=== PATIENT | female | born 1960 | race Caucasian/White ===

== ENCOUNTER 2017-03-09 19:45 | Emergency (ER) | payer BC ==
[2017-03-09 20:03] VITALS: BP 174/84
[2017-03-09] MEDS ORDERED: Lidocaine 1% 30 ML SDV INJECT ONE (20:04)
[2017-03-09] MEDS ORDERED: Bacitracin Oint 1 GM U/D Packet TOP ONE (20:05)
--- NOTE | 2017-03-09 20:31 | EDM.PDOC ---
ED HPI GENERAL MEDICAL PROBLEM - General Chief Complaint: Laceration Stated Complaint: FISH HOOK IN FINGER Time Seen by Provider: 03/09/17 20:00 Source of Information: Reports: Patient History Limitations: Reports: No Limitations - History of Present Illness INITIAL COMMENTS - FREE TEXT/NARRATIVE: fish hook to left middle finger imbedded and other lio of treble hook punctured left thumb. Hook cut prior to arrival. Tetnus current. Onset: today Duration: Minutes: Location: Reports: upper extremity, left Worsens with: Reports: Movement Associated Symptoms: Reports: no other symptoms Left Hand Pain Score (Numeric/FACES): 2 - Related Data Allergies Allergy/AdvReac Type Severity Reaction Status Date / Time Influenza Virus Vaccines Allergy Other Verified 03/09/17 19:51 Home Meds: Home Meds Multivitamins 1 tab PO DAILY 03/02/15 [History] Cholecalciferol (Vitamin D3) [Vitamin D3] 3,000 unit PO DAILY 12/14/16 [History] Past Medical History HEENT History: Reports: None Cardiovascular History: Reports: Hypertension Respiratory History: Reports: None Gastrointestinal History: Reports: GERD Genitourinary History: Reports: Other (see below) Other Genitourinary History: MENOMETRORRHAGIA Musculoskeletal History: Reports: Other (see below) Other Musculoskeletal History: CARPAL TUNNEL SYNDROME Neurological History: Reports: Other (see below) Other Neuro History: NICOTINE DEPENDENCE Psychiatric History: Reports: None Endocrine/Metabolic History: Reports: None Hematologic History: Reports: None Immunologic History: Reports: None - Past Surgical History HEENT Surgical History: Reports: None Female Surgical History: Reports: Dilitation & evacuation, Tubal ligation, Other (see below) Other Female Surgeries/Procedures: CERVIX LESION DESTRUCTION. CERVICAL POLYP REMOVAL Neurological Surgical History: Reports: Other (see below) Other Neurological Surgeries/Procedures: EMG - 2 EXTREMITIES Musculoskeletal Surgical History: Reports: Other (see below) Other Musculoskeletal Surgeries/Procedures:: bunionectomy Social & Family History - Family History Family Medical History: Noncontributory - Tobacco Use Smoking Status *Q: Current Every Day Smoker Years of Tobacco use: 30 Packs/Tins Daily: 0.5 Second Hand Smoke Exposure: No - Caffeine Use Caffeine Use: Reports: Coffee, Soda - Alcohol Use Days Per Week of Alcohol Use: 0 - Recreational Drug Use Recreational Drug Use: No ED ROS GENERAL - Review of Systems Review Of Systems: ROS reveals no pertinent complaints other than HPI. ED EXAM, SKIN/RASH Exam: See Below Exam Limited By: No Limitations General Appearance: Alert, Anxious, Mild Distress Eye Exam: Bilateral Eye: PERRL Ears: Normal External Exam Throat/Mouth: Normal Voice, No Airway Compromise Neck: Full Range of Motion Respiratory/Chest: No Respiratory Distress, Lungs Clear Cardiovascular: Normal Peripheral Pulses, Regular Rate, Rhythm Neurological: Alert, Oriented, Normal Cognition Skin: Warm, Dry, Wound/Incision (left thumb superficial v laceration 2dym2se no active bleeding, no selling, full ROM of thumb. Pad left 3rd finger with partial hook imbedded) Associated features: Tenderness ED SKIN PROCEDURES - Foreign Body Removal Foreign Body Other Location Comment:: left pad thumb fish hook Anesthesia Type: Local (1% lidocaine 1cc) Complications:: No Comments:: area cleansed with betadine, local anesthesia to area around fish hook. parb easily pushed through and removed. cleansed, antibiotic ointment appleid, dressing per nursing. Patient tolerated well. Course - Vital Signs Last Recorded V/S: Last Vital Signs Temp 98.4 F 03/09/17 19:55 Pulse 103 H 03/09/17 19:55 Resp 16 03/09/17 19:55 BP 174/84 H 03/09/17 20:02 Pulse Ox 100 03/09/17 19:55 - Orders/Labs/Meds Meds: Medications Discontinued Medications Generic Name Dose Route Start Last Admin Trade Name Rosibel PRN Reason Stop Dose Admin Bacitracin 1 dose 03/09/17 20:05 03/09/17 20:23 Bacitracin Oint 1 Gm TOP 03/09/17 20:06 1 dose ONETIME ONE Administration Lidocaine HCl 30 ml 03/09/17 20:04 03/09/17 20:21 Xylocaine-Mpf 1% INJECT 03/09/17 20:05 30 ml ONETIME ONE Administration Departure - Departure Time of Disposition: 20:30 Disposition: Home, Self-Care 01 Condition: good Clinical Impression: Removal of foreign body Fish hook injury of finger of left hand Qualifiers: Encounter type: initial encounter Qualified Code(s): S69.92XA - Unspecified injury of left wrist, hand and finger(s), initial encounter - Discharge Information Instructions: Puncture Wound, [id number] Forms: ED Department Discharge Additional Instructions: monitor for infection, if redness selling follow up in clinic warm soak 3 times daily with antibacterial soap cover with bandaide and antibiotic ointment
== END 2017-03-09 20:39 | disposition home or self-care (01) ==
LOC: DL.ED 19:45
DX: S61.022A Laceration with foreign body of left thumb without damage to nail, initial encounter (principal); S60.453A Superficial foreign body of left middle finger, initial encounter; I10 Essential (primary) hypertension; K21.9 Gastro-esophageal reflux disease without esophagitis; F17.210 Nicotine dependence, cigarettes, uncomplicated; Z88.7 Allergy status to serum and vaccine; Z79.899 Other long term (current) drug therapy; Z98.51 Tubal ligation status; W26.8XXA Contact with other sharp object(s), not elsewhere classified, initial encounter
CPT/HCPCS: 99283

== ENCOUNTER 2017-09-28 07:19 | Day surgery (SDC) | payer BC ==
[2017-09-28] MEDS ORDERED: Propofol 1,000 MG/100 ML SDV IV ONE (07:20)
[2017-09-28] MEDS ORDERED: fentaNYL 100 MCG/2 ML SDV IV ONE (07:20)
[2017-09-28] MEDS ORDERED: Bupivacaine 0.5% 10 ML SDV INJECT ONE ×5 (07:20→10:44)
[2017-09-28] MEDS ORDERED: Midazolam 1 MG/ML 2 ML SDV IV ONE (07:20)
[2017-09-28] MEDS ORDERED: Lidocaine 1% 30 ML SDV INJECT ONE ×5 (07:20→10:44)
[2017-09-28] MEDS ORDERED: Dexamethasone 4 MG/ML SDV IV ONE (07:20)
[2017-09-28] MEDS ORDERED: Ondansetron 4 MG/2 ML SDV IV ONE (07:20)
[2017-09-28] MEDS ORDERED: Ketorolac 30 MG/ML SDV IVPUSH ONE (07:20)
[2017-09-28] MEDS ORDERED: Bupivacaine 0.5% 10 ML SDV ONE (07:35)
[2017-09-28] MEDS ORDERED: Lidocaine 1% 30 ML SDV ONE (07:35)
[2017-09-28] MEDS ORDERED: Lactated Ringers 1,000 ML IV SCH (07:45)
[2017-09-28] MEDS ORDERED: ceFAZolin 1 GM in Premix Bag 1 BAG IV ONE (08:15)
[2017-09-28] MEDS ORDERED: Acetaminophen/oxyCODONE 325-5 MG Tab PO PRN (10:55)
--- NOTE | 2017-09-28 10:59 | PCM.OPNOTE ---
- General Post-Op/Procedure Note Date of Surgery/Procedure: 09/28/17 Operative Procedure(s): left foot 1st metatarsal cuneiform arthrodesis bunionectomy Pre Op Diagnosis: left foot painful bunion Post-Op Diagnosis: sid Anesthesia Technique: Local, MAC Primary Surgeon: Janina Fuentes Anesthesia Provider: Brent Ritter EBL in mLs: 10 Complications: none Condition: Good Free Text/Narrative:: Intake & Output 09/27/17 09/28/17 09/28/17 22:59 06:59 14:59 Intake Total 50 Balance 50 Pt tolerated procedure well and was transported to pacu with vss and vascular status intact to left foot. TT 103 mins. Well padded L&U splint applied with foot in neutral position. [place] 3.0 cannulated screws placed.
[2017-09-28 12:21] VITALS: BP 150/79
--- NOTE | 2017-09-29 08:48 | OR ---
DATE: 09/28/2017 PREOPERATIVE DIAGNOSIS: Left foot painful bunion deformity. POSTOPERATIVE DIAGNOSIS: Left foot painful bunion deformity. PROCEDURE PERFORMED: Left foot 1st metatarsal cuneiform arthrodesis/bunionectomy. ANESTHESIA: Local MAC with preoperative local block of 10 mL 1:1 mixture of 1% lidocaine plain and 0.5% Marcaine plain. TOURNIQUET TIME: 103 minutes of pneumatic ankle tourniquet. ESTIMATED BLOOD LOSS: Minimal. SPECIMEN: None. COMPLICATIONS: None. INDICATIONS: Dai is a 57-year-old female who is status post right foot bunionectomy [place] procedure performed earlier this year. She is doing very well with that foot with no pain and her right foot is completely healed. She would like to set up surgery for her left foot bunion, would like the same type of procedure for that foot as her right foot turned out very well. She does have a very large bunion deformity to the left foot also with pain to that foot in that area. She has tried wider shoes, toe spacers, activity modifications with no relief. She is on her feet all day and works at [employer]. X-rays of the left foot revealed medially deviated 1st metatarsal with IM angle of 19 degrees, hallux abductus angle of 23 degrees. The patient voiced good understanding of proposed procedure and possible complications, elects to have surgery at this time. DESCRIPTION OF PROCEDURE: The patient was taken to the operating room, lying in the supine position. After adequate anesthesia induction as described above, the left foot was prepped and draped in the usual sterile fashion. A pneumatic ankle tourniquet was inflated to 225 mmHg. Attention was then directed to the left foot 1st metatarsal where an approximately 7 cm curvilinear incision was made centered over the 1st metatarsal. The skin incision was deepened to the periosteum with sharp and blunt dissection with care to retract all neurovascular bundles, the nerve did cross over the incision site right over her 1st metatarsal cuneiform joint. I immobilized that and retracted it proximally. An inverted-L capsulotomy was performed. The capsule was reflected to expose the 1st metatarsal and the 1st metatarsal cuneiform joint. 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 All articular cartilage was healthy in appearance at the 1st metatarsal phalangeal joint with no defects. The cartilage at the 1st metatarsal cuneiform joint was removed via curettage. A 0.062 inch K-wire was used to fenestrate the area to the subchondral bone and the osteotome was also used to break up the subchondral bone. A bone rasp was used to rasp down that lateral section of the base of the 1st metatarsal and medial cuneiform. The bunion was reduced, and the osteotomy site was then approximated to have good [id number] contact with good reduction of the 1st intermetatarsal angle. Two partially-threaded crossing 3.0 mm Cindi cannulated screws were then inserted across the fusion site. The osteotomy site was noted to be stable with varus, valgus, and axial forces applied. Fluoroscopy was used to verify proper reduction of the 1st intermetatarsal angle as well as proper positioning of the screw fixation in good compression at the joint site. This was also visualized. The area was then flushed with copious amounts of sterile saline. A medial capsulorrhaphy was performed. At this point, her hallux was noted to be very tight at the 1st metatarsophalangeal joint laterally, so I did do a lateral release at this time. Blunt dissection was performed to the 1st interspace and a lateral release was performed. The hallux was noted to be in rectus alignment after that release. The medial capsulorrhaphy was performed. Medial capsular closure was completed with 2-0 Vicryl. Dorsal capsular closure and subcutaneous closure were completed with 3-0 Vicryl, and skin closure was completed with 4-0 nylon. The area was dressed with Xeroform to the incision sites, fluffs, Webril, and a well- padded L and U splint with the foot in neutral position. The hallux was noted to be in rectus alignment. The patient tolerated the procedure and anesthesia well and left the operating room with vital signs stable in good condition with vascular status intact to the left foot as noted by immediate hyperemia to all digits upon deflation of the ankle tourniquet. Tourniquet time was 103 minutes. The patient was discharged home when she met hospital discharge requirements. [facility] /[id number]
== END 2017-09-28 12:00 | disposition home or self-care (01) ==
LOC: DL.SDS 07:19
PROVIDERS: ATTEND Podiatrist
DX: M21.612 Bunion of left foot (principal); I10 Essential (primary) hypertension; K21.9 Gastro-esophageal reflux disease without esophagitis; F41.9 Anxiety disorder, unspecified; Z98.51 Tubal ligation status; Z98.890 Other specified postprocedural states; Z79.899 Other long term (current) drug therapy; Z88.8 Allergy status to other drugs, medicaments and biological substances; F17.210 Nicotine dependence, cigarettes, uncomplicated
CPT/HCPCS: 28750; C1713; J0690; J1100; J1885; J2250; J2405; J2704; J3010; J7120

== ENCOUNTER 2018-04-05 18:01 | Emergency (ER) | payer BC ==
[2018-04-05 18:49] VITALS: BP 160/80
[2018-04-05] MEDS ORDERED: Ketorolac 30 MG/ML SDV IVPUSH ONE (19:28)
[2018-04-05] MEDS ORDERED: Ondansetron 4 MG/2 ML SDV IV ONE (19:28)
--- NOTE | 2018-04-05 19:33 | EDM.PDOC ---
ED HPI GENERAL MEDICAL PROBLEM - General Chief Complaint: Genitourinary Problem Stated Complaint: [id number] kidney STONE OR BLADDER INFECTION Time Seen by Provider: 04/05/18 19:31 Source of Information: Reports: Patient History Limitations: Reports: No Limitations - History of Present Illness INITIAL COMMENTS - FREE TEXT/NARRATIVE: onset of problem on Monday with s/s UTI and low abd' pain on-off. then today developed increase pain with nausea, so came here. Right Flank Pain Score (Numeric/FACES): 6 - Related Data Allergies Allergy/AdvReac Type Severity Reaction Status Date / Time Influenza Virus Vaccines Allergy Other Verified 09/27/17 09:44 Home Meds: Home Meds Multivitamins 1 tab PO DAILY 03/02/15 [History] Cholecalciferol (Vitamin D3) [Vitamin D3] 3,000 unit PO DAILY 12/14/16 [History] Acetaminophen 1 tab PO Q6H PRN 09/27/17 [History] Ibuprofen 1 tab PO Q6H PRN 09/27/17 [History] PARoxetine HCl [Paroxetine HCl] 1 tab PO DAILY 09/27/17 [History] Past Medical History HEENT History: Reports: None Cardiovascular History: Reports: Hypertension, Other (See Below) Other Cardiovascular History: HX OF HTN WITH USE OF BIRTHCONTROL PILLS Respiratory History: Reports: None Gastrointestinal History: Reports: GERD Genitourinary History: Reports: UTI, Recurrent, Other (See Below) Other Genitourinary History: MENOMETRORRHAGIA [employer] WORKER History: Reports: Spontaneous Musculoskeletal History: Reports: Arthritis, Other (See Below) Other Musculoskeletal History: CARPAL TUNNEL SYNDROME Neurological History: Reports: Other (See Below) Other Neuro History: NICOTINE DEPENDENCE Psychiatric History: Reports: Anxiety, Panic Attack Endocrine/Metabolic History: Reports: None Hematologic History: Reports: None Immunologic History: Reports: None Oncologic (Cancer) History: Reports: None Dermatologic History: Reports: None - Infectious Disease History Infectious Disease History: Reports: None - Past Surgical History HEENT Surgical History: Reports: None Cardiovascular Surgical History: Reports: None GI Surgical History: Reports: None Female Surgical History: Reports: Dilitation & Evacuation, Tubal Ligation, Other (See Below) Other Female Surgeries/Procedures: CERVIX LESION DESTRUCTION. CERVICAL POLYP REMOVAL Neurological Surgical History: Reports: Other (See Below) Other Neurological Surgeries/Procedures: EMG - 2 EXTREMITIES Musculoskeletal Surgical History: Reports: Carpal Tunnel, Other (See Below) Other Musculoskeletal Surgeries/Procedures:: bunionectomy Social & Family History - Family History Family Medical History: Noncontributory Cardiac: Reports: Other (See Below) Other Cardiac Family History: HEART DISEASE UNSPECIFIED Neurological: Reports: Other (See Below) Other Neurological Family History: DYSTONIA Endocrine/Metabolic: Reports: Other (See Below) Other Endocrine/Metabolic Family History: THYRIOD DISEASE UNSPECIFIED Oncologic: Reports: Lung - Tobacco Use Smoking Status *Q: Current Every Day Smoker Years of Tobacco use: 25 Packs/Tins Daily: 1 - Caffeine Use Caffeine Use: Reports: Coffee, Soda Caffeine Use Comment: coffee 48oz. soda 12oz - Recreational Drug Use Recreational Drug Use: No ED ROS GENERAL - Review of Systems Review Of Systems: ROS reveals no pertinent complaints other than HPI. ED EXAM, RENAL/ - Physical Exam Exam: See Below Exam Limited By: No Limitations General Appearance: Alert, WD/WN, Mild Distress, Other (discomfort) Ears: Hearing Grossly Normal Throat/Mouth: Normal Voice, No Airway Compromise Head: Atraumatic Neck: Non-Tender, Full Range of Motion Respiratory/Chest: No Respiratory Distress Cardiovascular: Regular Rate, Rhythm GI/Abdominal: Guarding, Tender, Other (RLQ>). No: Distended, Rigid, Rebound Back Exam: CVA Tenderness (R) Neurological: Alert, Oriented, Normal Cognition, Normal Gait, No Motor/Sensory Deficits Psychiatric: Anxious Skin Exam: Warm, Dry, Normal Color Lymphatic: No Adenopathy Course - Vital Signs Last Recorded V/S: Last Vital Signs Temp 37.2 C 04/05/18 18:37 Pulse 84 04/05/18 18:37 Resp 20 04/05/18 18:37 BP 160/80 H 04/05/18 18:37 Pulse Ox 99 04/05/18 18:37 - Orders/Labs/Meds Labs: Laboratory Tests 04/05/18 04/05/18 04/05/18 Range/Units 18:50 19:15 19:15 WBC 12.9 H (5.0-10.0) 10^3/uL RBC 4.61 (4.2-5.4) 10^6/uL Hgb 14.3 (12.0-16.0) g/dL Hct 41.6 (37.0-47.0) % MCV 90.2 (80-100) fL MCH 31.0 (27.0-34.0) pg MCHC 34.4 (33.0-35.0) g/dL Plt Count 319 (150-450) 10^3/uL Neut % (Auto) 73.9 (42.2-75.2) % Lymph % (Auto) 16.3 L (20.5-50.1) % Mccreary % (Auto) 7.0 (2-8) % Eos % (Auto) 2.5 (1.0-3.0) % Baso % (Auto) 0.3 (0.0-1.0) % Sodium 133 L (135-145) mmol/L Potassium 4.0 (3.6-5.0) mmol/L Chloride 96 L (101-111) mmol/L Carbon Dioxide 27.0 (21.0-31.0) mmol/L Anion Gap 14.0 BUN 15 (7-18) mg/dL Creatinine 0.7 (0.6-1.3) mg/dL Est Cr Clr Drug Dosing 70.68 mL/min Estimated GFR (MDRD) > 60 BUN/Creatinine Ratio 21.42 Glucose 99 (74-105) mg/dL Calcium 9.8 (8.4-10.2) mg/dl Total Bilirubin 0.6 (0.2-1.0) mg/dL AST 27 (10-42) IU/L ALT 28 (10-60) IU/L Alkaline Phosphatase 74 (42-121) IU/L Total Protein 8.1 (6.7-8.2) g/dl Albumin 4.8 (3.2-5.5) g/dl Globulin 3.3 Albumin/Globulin Ratio 1.45 Urine Color Yellow (YELLOW) Urine Appearance Turbid (CLEAR) Urine pH 6.0 (5.0-9.0) Ur Specific [place] 1.020 (1.005-1.030) Urine Protein >=300 H (NEGATIVE) Urine Glucose (UA) Negative (NEGATIVE) Urine Ketones Negative (NEGATIVE) Urine Occult Blood Large H (NEGATIVE) Urine Nitrite Positive H (NEGATIVE) Urine Bilirubin Negative (NEGATIVE) Urine Urobilinogen 0.2 (0.2-1.0) mg/dL Ur Leukocyte Esterase Large H (NEGATIVE) Urine RBC >100 H /HPF Urine WBC Packed H (0-5/HPF) /HPF Ur Epithelial Cells Many H /HPF Amorphous Sediment Many H (0/HPF) /HPF Urine Bacteria Many H (0-FEW/HPF) /HPF Urine Mucus Many H /LPF Meds: Medications Discontinued Medications Generic Name Dose Route Start Last Admin Trade Name Freq PRN Reason Stop Dose Admin Ceftriaxone Sodium 1 gm 04/05/18 21:34 04/05/18 21:41 Rocephin IVPUSH 04/05/18 21:35 1 gm ONETIME ONE Administration Iopamidol 50 ml 04/05/18 20:12 04/05/18 20:20 Isovue-300 (61%) IVPUSH 04/05/18 20:13 50 ml ONETIME ONE Administration Ketorolac Tromethamine 15 mg 04/05/18 19:28 04/05/18 19:38 Toradol IVPUSH 04/05/18 19:29 15 mg ONETIME ONE Administration Ondansetron HCl 4 mg 04/05/18 19:28 04/05/18 19:37 Zofran IV 04/05/18 19:29 4 mg ONETIME ONE Administration - Re-Assessments/Exams Free Text/Narrative Re-Assessment/Exam: 04/05/18 21:39 results discussed with pt. Departure - Departure Time of Disposition: 21:45 Disposition: Home, Self-Care 01 Condition: Good Clinical Impression: UTI, Urinary tract infectious disease, Kidney stone - Discharge Information Instructions: Renal Colic, [id number] Referrals: Ady Blandon MD [Primary Care Provider] - Forms: ED Department Discharge Additional Instructions: 1) rest 2) drink lots of liquids 3) follow up with family doctor next week rx given; bactrim DS bid x 20 pyridium 100mg tid prn x 12
[2018-04-05 19:46] LABS: CHLORIDE,CL 96 mmol/L (101-111); SODIUM,NA 133 mmol/L (135-145)
[2018-04-05] MEDS ORDERED: Iopamidol 612 MG/ML 50 ML SDV IVPUSH ONE (20:12)
[2018-04-05] MEDS ORDERED: cefTRIAXone 1 GM Vial IVPUSH ONE (21:34)
== END 2018-04-05 21:49 | disposition home or self-care (01) ==
LOC: DL.ED 18:01
DX: N20.0 Calculus of kidney (principal); I10 Essential (primary) hypertension; F17.210 Nicotine dependence, cigarettes, uncomplicated; Z88.7 Allergy status to serum and vaccine; Z79.899 Other long term (current) drug therapy
CPT/HCPCS: 36415; 74177; 80053; 81001; 85025; 96374; 96375; 99284; J0696; J1885; J2405; Q9967